=== PATIENT | female | born 1980 | race African-American/Black ===

== ENCOUNTER 2017-08-09 11:53 | Emergency (ER) | payer OTHER ==
[~2017-08-09] VITALS: Ht 165.1 cm; Wt 95.3 kg
[~2017-08-09 11:53] MED LIST: ALBUTEROL0.09 MG/A1 INH; CYCLOBENZAPRINE5 M2 PO; HYDROCODON-ACET15 ML PO; HYDRODIURIL 2525 MG PO; IBUPROFEN800 M1 PO; MEDROL DOSEPAK1 PAC PO; NAPROSYN500 M1 PO; NORVASC 5MG TAB5 MG PO; PROTONIX 40MG T40 MG PO; TESSALON PERLE100 MG PO; [UNRECOGNIZED DRUG - OTHER] PO
--- NOTE | 2017-08-09 12:34 | ED GENERAL ADULT ---
History of Present Illness General Chief Complaint: Upper Respiratory Sx/Fever Stated Complaint: C/O PAIN IN LUNGS,CHILLS,BODY ACHES, +NVD Source: patient Exam Limitations: no limitations Vital Signs & Intake/Output Vital Signs & Intake/Output Vital Signs Date Time Temp Pulse Resp B/P B/P Pulse O2 O2 Flow FiO2 Mean Ox Delivery Rate 08/09 1453 98.7 80 15 120/80 99 Room Air Room Air 08/09 1310 Room Air Room Air ED Intake and Output 08/10 0000 08/09 1200 Intake Total 0 Output Total Balance 0 Intake, Oral 0 Patient 210 lb Weight Weight Reported by Patient Measurement Method Allergies Coded Allergies: NO KNOWN ALLERGIES (09/28/15) Reconcile Medications Albuterol Sulfate (Proventil Hfa) 90 MCG HFA.AER.AD 2 PUF INH Q4 sob Amlodipine (Norvasc 5MG Tab) 5 MG TABLET 1 TAB PO DAILY HYPERTENSION ( Reported) Benzonatate 200 MG CAPSULE 1 CAP PO TIDPRN cough Cyclobenzaprine HCl 5 MG TABLET 1 TAB PO TIDPRN PRN MUSCLE SPASMS Hydrochlorothiazide (Hydrodiuril 25 MG Tab) 25 MG TABLET 1 TAB PO DAILY HYPERTENSION (Reported) Hydrocodone/Acetaminophen (Hydrocodon-Acetamin 7.5-325/15) 15 ML SOLUTION 30 ML PO Q4P PRN SEVERE PAIN (PAIN >8) please change sig to 15-30ml q 4-6 hours prn pain Ibuprofen 800 MG TABLET 800 MG PO Q6 PRN pain Levofloxacin (Levaquin) 500 MG TABLET 1 TAB PO DAILY pna Naproxen (Naprosyn) 500 MG TABLET 1 TAB PO BID PRN PAIN AND INFLAMMATION Prednisone 50 MG TABLET 1 TAB PO DAILY bronchitis Triage Note: PT TO ED C/O ON AND OFF CHILLS, FATIGUE AND DIARRHEA X 3 WEEKS. AFEBRILE. Triage Nurses Notes Reviewed? yes Onset: Abrupt Duration: week(s): (3), constant, continues in ED Timing: recent history Injury Environment: home : No Patient currently breastfeeds: No HPI: 36-year-old female comes into emergency room with multiple complaints. Patient reports she's been feeling sick for about 3 weeks. Fever chills body aches coughing congestion and runny nose. She reports some pain in her chest and back when she coughs. Denies any pain in her abdomen. Symptoms have been progressive and she has tried [id number] medication with minimal relief. Denies any other source of symptoms. (Brian Wise) Past History Travel History Traveled to [place] past 21 day No Medical History Any Pertinent Medical History? 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 No (Brian Wise) Review of Systems Review of Systems Constitutional: Reports: see HPI. EENTM: Reports: see HPI. Respiratory: Reports: see HPI. Cardiovascular: Reports: see HPI. GI: Reports: no symptoms. Genitourinary: Reports: no symptoms. Musculoskeletal: Reports: no symptoms. Skin: Reports: no symptoms. Neurological/Psychological: Reports: no symptoms. Hematologic/Endocrine: Reports: no symptoms. Immunologic/Allergic: Reports: no symptoms. All Other Systems: Reviewed and Negative (Brian Wise) Physical Exam Physical Exam General Appearance: well developed/nourished, no apparent distress, alert, awake Head: atraumatic, normal appearance Eyes: Bilateral: normal appearance, EOMI. Ears, Nose, Throat: normal ENT inspection, hearing grossly normal Neck: normal inspection Respiratory: normal breath sounds, no respiratory distress Cardiovascular: regular rate/rhythm Back: normal inspection Extremities: normal inspection, no edema Neurologic/Psych: awake, alert, oriented x 3, normal gait, normal mood/affect Skin: intact, normal color Core Measures ACS in differential dx? Yes CVA/TIA Diagnosis: No Sepsis Present: No Sepsis Focused Exam Completed? No (Brian Wise) Progress Differential Diagnoses I considered the following diagnoses in my evaluation of the patient: Influenza , bronchitis, pneumonia, UTI, DC, PE, Plan of Care: Orders Procedure Date/time Status RAPID VIRAL INFLUENZA A 08/09 1233 Complete URINALYSIS 08/09 1231 Complete TROPONIN LEVEL 08/09 1231 Complete COMPREHENSIVE METABOLIC PANEL 08/09 1231 Complete CBC WITHOUT DIFFERENTIAL 08/09 1231 Complete EKG 08/09 1231 Active Laboratory Tests 08/09/17 1253: Anion Gap 11, Estimated GFR > 60, BUN/Creatinine Ratio 15.7, Glucose 90, Calcium 10.1, Total Bilirubin 0.1 L, AST 28, ALT 27, Alkaline Phosphatase 55, Troponin I < 0.01, Total Protein 7.0, Albumin 4.1, Globulin 2.9, Albumin/Globulin Ratio 1.4, CBC w Diff NO MAN DIFF REQ, RBC 4.60, MCV 93.6, MCH 29.8, MCHC 31.8 L, RDW 14.1, MPV 7.8, Gran % 67.7, Lymphocytes % 23.7, Monocytes % 7.5, Eosinophils % 0.7, Basophils % 0.4, Absolute Granulocytes 8.1 H, Absolute Lymphocytes 2.8, Absolute Monocytes 0.9 H, Absolute Eosinophils 0.1, Absolute Basophils 0.1 08/09/17 1246: Urine Color YEL, Urine Clarity CLEAR, Urine pH 7.0, Ur Specific [place] 1.025, Urine Protein NEG, Urine Ketones NEG, Urine Nitrite NEG, Urine Bilirubin NEG, Urine Urobilinogen 1.0, Ur Leukocyte Esterase NEG, Ur Microscopic SEDIMENT EXAMINED, Urine RBC 1-3, Urine WBC RARE, Ur Epithelial Cells MOD H, Urine Mucus FEW, Urine Hemoglobin TRACE-INTACT, Urine Glucose NEG Microbiology 08/09 1250 NASOPHARYN: Influenza Virus A & B Rapid Smear - COMP Diagnostic Imaging: Viewed by Me: Radiology Read. Discussed w/RAD: Radiology Read. Initial ED EKG: normal sinus rhythm, rate (64) Comments: 08/09/2017 2:10:32 PM Symptoms are most consistent with bronchitis pneumonia. Negative PERC SCORE. Low probability well's criteria. Patient clinically looks well. Patient is no apparent distress. Nontoxic appearing. Resting comfortably in room. Follow-up was primary care doctor. Rest. Drink plenty of fluids. (Juan HALL,Brian) Departure Departure Disposition: HOME OR SELF CARE Condition: Stable Clinical Impression Primary Impression: Bronchitis Referrals: Huyen Salinas APRN (PCP/Family) Additional Instructions: Take prednisone, levofloxacin, albuterol, and Tessalon Perles as prescribed. Follow-up with your PCP. Please go over all results of today's visit with your primary care doctor. Contact your primary care doctor to let them know you were here in the emergency room. There may be nonspecific findings which may not be related to your visit today here in the emergency room but may require further evaluation and chronic monitoring by your primary care doctor. If you had a laceration today the chance of foreign body always remains. You should follow-up with your primary care doctor for recheck in 3-5 days for a wound check. If you had an x-ray done there is a chance that a fracture could have been missed on initial read and you should follow-up with your primary care doctor for repeat x-rays if symptoms persist. If your blood pressure was elevated here in the emergency room please have rechecked by crisit primary care doctor within the next 48. If you were prescribed a narcotic here in the emergency room or any type of controlled substances you're not allowed to drive while taking this medication or operate any type of heavy machinery. Narcotics can make you feel lightheaded dizziness nausea and can cause constipation. You may need to fern picker a stool softener. Thank you for choosing [facility] emergency room. Please return to the emergency room immediately if you have any other concerns worsening of symptoms. Departure Forms: Customer Survey General Discharge Information Prescriptions: Current Visit Scripts Levofloxacin (Levaquin) 1 TAB PO DAILY #7 TAB Albuterol Sulfate (Proventil Hfa) 2 PUF INH Q4 #1 INHAL Benzonatate 1 CAP PO TIDPRN #30 CAP Prednisone 1 TAB PO DAILY #5 TAB (Brian Wise) PA/COMPONENT DESIGN ENGINEER Co-Sign Statement Statement: ED Attending supervision documentation- [] I saw and evaluated the patient. I have also reviewed all the pertinent lab results and diagnostic results. I agree with the findings and the plan of care as documented in the PA's/COMPONENT DESIGN ENGINEER's documentation. [X] I have reviewed the ED Record and agree with the PA's/COMPONENT DESIGN ENGINEER's documentation. [] Additions or exceptions (if any) to the PAs/COMPONENT DESIGN ENGINEER's note and plan are summarized below: [] (David ROBERTS,[place]) Critical Care Note Critical Care Note Critical Care Time: non-applicable (Brian Wise)
[2017-08-09 13:09] LABS: ABSOLUTE BASOPHIL COUNT 0.1 /CUMM (0.0-0.2); ABSOLUTE EOSINOPHIL COUNT 0.1 /CUMM (0.0-0.7); ABSOLUTE GRANULOCYTE CT 8.1 /CUMM (1.4-6.5); ABSOLUTE LYMPH COUNT 2.8 /CUMM (1.2-3.4); ABSOLUTE MONOCYTE COUNT 0.9 /CUMM (0.10-0.60); BASOPHIL % 0.4 % (0.0-2.0); EOSINOPHIL % 0.7 % (0-5); GRANULOCYTE % 67.7 % (42.2-75.2); MEAN CORPUSCULAR HGB 29.8 PG (27.0-31.0); MEAN CORPUSCULAR HGB CONC 31.8 G/DL (33.0-37.0); MEAN CORPUSCULAR VOLUME 93.6 FL (81.0-99.0); MEAN PLATELET VOLUME 7.8 FL (7.4-10.4); PLATELET COUNT 303 /CUMM (130-400); RBC DISTRIBUTION WIDTH 14.1 % (11.5-14.5)
--- NOTE | 2017-08-09 14:40 | RADIOLOGY REPORT ---
EXAMINATION: PA and lateral chest radiograph CLINICAL INFORMATION: Cough and fever COMPARISON: Chest x-ray 06/27/2014. TECHNIQUE: 2 views of the chest were obtained. FINDINGS: Symmetric lung inflation. There is central peribronchial thickening that may reflect chronic small airways disease versus atypical pneumonia. There is no focal consolidation, pleural effusion, or pneumothorax. Cardiac silhouette size is normal. There are no acute osseous findings. Rightward convex thoracic scoliosis. IMPRESSION: There is central peribronchial thickening that may reflect chronic small airways disease versus atypical pneumonia.
[2017-08-09] MEDS ORDERED: BENZONATATE200 M1 PO (14:48)
[2017-08-09] MEDS ORDERED: PREDNISONE50 M1 PO (14:48)
[2017-08-09] MEDS ORDERED: PROVENTIL HFA6.7 GM INH (14:48)
[2017-08-09] MEDS ORDERED: LEVAQUIN500 M1 PO (14:48)
[2017-08-09 14:53] VITALS: BP 120/80
== END 2017-08-09 14:54 ==
LOC: ERH 11:53
PROVIDERS: Physician Assistant Medical
DX: J40 Bronchitis, not specified as acute or chronic (principal); Z87.891 Personal history of nicotine dependence
CPT/HCPCS: 1263; 71046; 81001; 81025; 87804; 87804-59; 93005; 93010